=== PATIENT | female | born 1965 | race Caucasian/White ===

== ENCOUNTER 2019-04-19 11:37 | Emergency (ER) | payer OTHER ==
[2019-04-19 11:47] VITALS: BP 134/50; PULSE 90; TEMP 98.9; BMI 26.9
--- NOTE | 2019-04-19 12:10 | PDOC ---
History of Present Illness - General Chief Complaint: Sore Throat Stated Complaint: EARACHE/SORE THROAT Time Seen by Provider: 04/19/19 11:49 History Source: Patient Exam Limitations: No Limitations Past History - Past Medical History Allergies/Adverse Reactions: Allergies Allergy/AdvReac Type Severity Reaction Status Date / Time No Known Allergies Allergy Verified 04/19/19 11:47 Home Medications: Ambulatory Orders No Home Medications 0 dose .ROUTE UTDICT 09/06/13 Cephalexin Monohydrate [Keflex -] 500 mg PO Q8H #21 capsule 10/18/18 Fluticasone Prop 0.05% Nasal [Flonase -] 1 - 2 spray NS DAILY #1 spray.pump 10/31 COPD: No HTN: Yes (NO MEDS) Thyroid Disease: Yes - Immunization History Immunization Up to Date: Yes - Psycho Social/Smoking Cessation Hx Smoking Status: No Smoking History: Never smoked Have you smoked in the past 12 months: No Number of Cigarettes Smoked Daily: 0 Cigars Per Day: 0 Hx Alcohol Use: No Drug/Substance Use Hx: No Substance Use Type: None *Physical Exam - Vital Signs Last Vital Signs Temp Pulse Resp BP Pulse Ox 98.9 F 90 18 134/50 L 98 04/19/19 11:44 04/19/19 11:44 04/19/19 11:44 04/19/19 11:44 04/19/19 11:44 - Physical Exam General Appearance: No: Apparent Distress HEENT: positive: Normal Voice, Nasal Congestion, TM Bulging (L ear), Other (R ear unremarkable). negative: Pharyngeal Erythema, Tonsillar Exudate, Tonsillar Erythema, Rhinorrhea, Sinus Tenderness, TM Erythema Respiratory/Chest: positive: Lungs Clear, Normal Breath Sounds. negative: Respiratory Distress Cardiovascular: positive: Regular Rhythm, Regular Rate, S1, S2. negative: Murmur Integumentary: positive: Normal Color Neurologic: positive: Alert Medical Decision Making - Medical Decision Making 54 y/o F with no sig pmh presents with L ear clogged x 3 days. Also mentions nasal congestion, rhinorrhea, mild throat discomfort. Denies fever, sob, cp, abd pain, n/v, other complaints Likely serous otitis media stable for dc 04/19/19 12:06 Discharge - Discharge Information Problems reviewed: Yes Clinical Impression/Diagnosis: Serous otitis media Qualifiers: Chronicity: acute Laterality: left Recurrence: non-recurrent Qualified Code(s) : H65.02 - Acute serous otitis media, left ear Condition: Stable Disposition: HOME - Admission No - Additional Discharge Information Prescriptions: Fluticasone Prop 0.05% Nasal [Flonase -] 1 - 2 spray NS DAILY #1 spray.pump Prescription Drug Monitoring Program (I-STOP) results: I-STOP not reviewed - Follow up/Referral - Patient Discharge Instructions Patient Printed Discharge Instructions: Middle Ear Infection Additional Instructions: Thank you for choosing [facility]. It was a pleasure taking care of you. Use normal saline spray/Nedi-pot to help with congestion Also use the Flonase spray as directed Follow-up with your doctor in 2-3 days Return to the Emergency Department if your symptoms worsen or persist, you have fever or other concerning symptoms. - Post Discharge Activity
== END 2019-04-19 12:45 | disposition home or self-care (01) ==
LOC: JERFT 11:37
DX: H65.02 Acute serous otitis media, left ear (principal); I10 Essential (primary) hypertension; E07.9 Disorder of thyroid, unspecified
CPT/HCPCS: 99281-25

== ENCOUNTER 2019-06-21 02:41 | Emergency (ER) | payer OTHER ==
--- NOTE | 2019-06-21 03:38 | PDOC ---
History of Present Illness - General Stated Complaint: VOMITING Time Seen by Provider: 06/21/19 03:27 - History of Present Illness Initial Comments: Quinton Rachel is a 54F with no reported pmh presenting today with epigastric and periumbilical abdominal pain and vomiting x2 that started at 6pm yesterday evening. Reports that she ate at home and that a lot of her family has been sick with nausea/vomiting. Reports associated diarrhea. Denies fever/chills. Denies chest pain/shortness of breath. Denies lower extremity swelling. Denies dysuria. Describes the pain as burning in sensation. No pain radiation. SurgHx: no abdominal surgeries Past History - Past Medical History Allergies/Adverse Reactions: Allergies Allergy/AdvReac Type Severity Reaction Status Date / Time No Known Allergies Allergy Verified 04/19/19 11:47 Home Medications: Ambulatory Orders No Home Medications 0 dose .ROUTE UTDICT 09/06/13 Cephalexin Monohydrate [Keflex -] 500 mg PO Q8H #21 capsule 10/18/18 Fluticasone Prop 0.05% Nasal [Flonase -] 1 - 2 spray NS DAILY #1 spray.pump 10/31 Fluticasone Prop 0.05% Nasal [Flonase -] 1 - 2 spray NS DAILY #1 spray.pump 10/31 COPD: No HTN: Yes (NO MEDS) Thyroid Disease: Yes - Immunization History Immunization Up to Date: Yes - Psycho Social/Smoking Cessation Hx Smoking Status: No Smoking History: Never smoked Have you smoked in the past 12 months: No Number of Cigarettes Smoked Daily: 0 Cigars Per Day: 0 Hx Alcohol Use: No Drug/Substance Use Hx: No Substance Use Type: None Review of Systems - Review of Systems Comments:: GENERAL/CONSTITUTIONAL: No fever or chills. No weakness._ HEAD, EYES, EARS, NOSE AND THROAT: No change in vision. No change in hearing. No sore throat._ CARDIOVASCULAR: No chest pain or shortness of breath_ RESPIRATORY: Denies cough, hemoptysis_ GASTROINTESTINAL: Reports abdominal pain, nausea, vomiting, diarrhea. GENITOURINARY: No dysuria, frequency, or change in urination._ MUSCULOSKELETAL: No joint or muscle swelling or pain. No neck or back pain._ SKIN: No rash_ NEUROLOGIC: No headache, vertigo, loss of consciousness, or change in strength/ sensation._ ENDOCRINE: No increased thirst. No abnormal weight change_ HEMATOLOGIC/LYMPHATIC: No anemia, easy bleeding, or history of blood clots._ ALLERGIC/IMMUNOLOGIC: No hives or skin allergy._ *Physical Exam - Physical Exam GENERAL: Awake, alert, and oriented to person/place/time, in no acute distress_ HEAD: No signs of trauma, normoc ephalic, atraumatic _ EYES: PERRLA, EOMI, sclera anicteric, conjunctiva clear_ ENT: Hearing grossly normal, nares patent, oropharynx clear without exudates. No uvular deviation. Moist mucosa_ NECK: Normal ROM, supple, no lymphadenopathy, JVD, or masses_ LUNGS: No distress, speaks in full sentences, clear to auscultation bilaterally _ HEART: Regular rate and rhythm, normal S1 and S2, no murmurs appreciated, peripheral pulses normal and equal bilaterally._ ABDOMEN: Soft, epigastric and periumbilical TTP, normoactive bowel sounds. No guarding, no rebound. No masses_ EXTREMITIES: Normal inspection, Normal range of motion, no edema. No clubbing or cyanosis_ NEUROLOGICAL: Cranial nerves II through XII grossly intact. Normal speech, normal gait, no focal sensorimotor deficits _ SKIN: Warm, Dry, normal turgor, no rashes or lesions noted_ ED Treatment Course - LABORATORY CBC & Chemistry Diagram: 06/21/19 04:31 06/21/19 04:31 Medical Decision Making - Medical Decision Making 06/21/19 03:37 54F no pmh presenting with epigastric/periumbilical burning abdominal pain. -cbc, cmp, lipase -fluids, tylenol, zofran -ekg 06/21/19 04:42 EKG shows NSR, 82 bpm, no ST elevation, QTc 457. 06/21/19 06:17 Labs reviewed. Laboratory Last Values WBC 9.3 K/mm3 (4.0-10.0) 06/21/19 04:31 RBC 5.19 M/mm3 (3.60-5.2) 06/21/19 04:31 Hgb 14.0 GM/dL (10.7-15.3) 06/21/19 04:31 Hct 41.9 % (32.4-45.2) 06/21/19 04:31 MCV 80.7 fl (80-96) 06/21/19 04:31 MCH 27.0 pg (25.7-33.7) 06/21/19 04:31 MCHC 33.5 g/dl (32.0-36.0) 06/21/19 04:31 RDW 13.5 % (11.6-15.6) 06/21/19 04:31 Plt Count 317 K/MM3 (134-434) 06/21/19 04:31 MPV 8.8 fl (7.5-11.1) 06/21/19 04:31 Absolute Neuts (auto) 8.1 K/mm3 (1.5-8.0) H 06/21/19 04:31 Neutrophils % 86.3 % (42.8-82.8) H D 06/21/19 04:31 Lymphocytes % 7.5 % (8-40) L D 06/21/19 04:31 Monocytes % 5.2 % (3.8-10.2) 06/21/19 04:31 Eosinophils % 0.7 % (0-4.5) 06/21/19 04:31 Basophils % 0.3 % (0-2.0) 06/21/19 04:31 Nucleated RBC % 0 % (0-0) 06/21/19 04:31 Sodium 139 mmol/L (136-145) 06/21/19 04:31 Potassium 4.8 mmol/L (3.5-5.1) 06/21/19 04:31 Chloride 104 mmol/L (98-107) 06/21/19 04:31 Carbon Dioxide 31 mmol/L (21-32) 06/21/19 04:31 Anion Gap 5 MMOL/L (8-16) L 06/21/19 04:31 BUN 15.2 mg/dL (7-18) 06/21/19 04:31 Creatinine 0.7 mg/dL (0.55-1.3) 06/21/19 04:31 Est GFR (CKD-EPI)AfAm 113.05 06/21/19 04:31 Est GFR (CKD-EPI)NonAf 97.54 06/21/19 04:31 Random Glucose 119 mg/dL (74-106) H 06/21/19 04:31 Calcium 8.8 mg/dL (8.5-10.1) 06/21/19 04:31 Total Bilirubin 0.5 mg/dL (0.2-1) 06/21/19 04:31 AST 24 U/L (15-37) 06/21/19 04:31 ALT 31 U/L (13-61) 06/21/19 04:31 Alkaline Phosphatase 61 U/L (45-117) 06/21/19 04:31 Creatine Kinase 110 U/L (26-192) 06/21/19 04:31 Troponin I < 0.02 ng/ml (0.00-0.05) 06/21/19 04:31 Total Protein 7.7 g/dl (6.4-8.2) 06/21/19 04:31 Albumin 3.7 g/dl (3.4-5.0) 06/21/19 04:31 Lipase 71 U/L (73-393) L 06/21/19 04:31 Pt reassessed. Reports much improvement. Plan to d/c home. All questions answered. Strict return precautions. Pt verbalized understanding and agreement with plan. Discharge - Discharge Information Problems reviewed: Yes Clinical Impression/Diagnosis: Vomiting Condition: Stable Disposition: HOME - Follow up/Referral Referrals: Mino Davidson MD [Staff Physician] - - Patient Discharge Instructions Patient Printed Discharge Instructions: DI for Vomiting -- Adult Additional Instructions: Please keep yourself hydrated with fluids as much as possible. If you experience any new, worsening, or concerning symptoms, including worsening abdominal pain, unable to keep down fluids, blood in the vomit, or any other concerns, please return to the emergency department. - Post Discharge Activity
[2019-06-21 04:36] VITALS: BP 146/62; PULSE 84; TEMP 99; BMI 27.4
--- NOTE | 2019-06-21 04:52 | PDOC ---
Attending Attestation - Resident Resident Name: Hernandez Stoll - ED Attending Attestation I have performed the following: I have examined & evaluated the patient, The case was reviewed & discussed with the resident, I agree w/resident's findings & plan, Exceptions are as noted - HPI HPI: 06/27/19 20:41 See resident HPI - Physicial Exam PE: 06/27/19 20:41 Agree with documented exam - Medical Decision Making 06/27/19 20:41 54F with abdominal px a/w diarrhea, household members with same symptoms symptomatic tx, f/u labs re-eval symptoms improved dc home
[2019-06-21 05:03] LABS: BASO % 0.3 % (0-2.0); EOS % 0.7 % (0-4.5); HEMATOCRIT 41.9 % (32.4-45.2); LYMPH % 7.5 % (8-40); MCHC 33.5 g/dl (32.0-36.0); MEAN CELL VOLUME 80.7 fl (80-96); MEAN PLT VOLUME 8.8 fl (7.5-11.1); MONO % 5.2 % (3.8-10.2); NEUT % 86.3 % (42.8-82.8); PLATELET COUNT 317 K/MM3 (134-434); RBC 5.19 M/mm3 (3.60-5.2); RDW 13.5 % (11.6-15.6); WHITE BLOOD COUNT 9.3 K/mm3 (4.0-10.0)
[2019-06-21] MEDS ORDERED: SODIUM CHLORIDE 0.9% 500 ML INFUS.BAG IV ONE (05:06)
[2019-06-21] MEDS ORDERED: ACETAMINOPHEN 1000 MG/100 ML VIAL (NON FORMULARY) IVPB ONE (05:06)
[2019-06-21] MEDS ORDERED: ONDANSETRON 4 MG/2 ML VIAL IVPUSH ONE (05:12)
[2019-06-21 05:14] LABS: ALBUMIN 3.7 g/dl (3.4-5.0); BILIRUBIN,TOTAL 0.5 mg/dL (0.2-1); BLOOD UREA NITROGEN 15.2 mg/dL (7-18); CALCIUM 8.8 mg/dL (8.5-10.1); CREATININE 0.7 mg/dL (0.55-1.3); POTASSIUM 4.8 mmol/L (3.5-5.1); TOT PROT 7.7 g/dl (6.4-8.2)
[2019-06-21] MEDS ORDERED: ONDANSETRON 4 MG/2 ML VIAL ONE (05:20)
[2019-06-21] MEDS ORDERED: ACETAMINOPHEN INJECTION 100 ML IVPB ONE (05:20)
[2019-06-21 06:21] LABS: HYALINE CASTS 16 /lpf (0-8); PH,URINE >= 9.0 (5.0-8.0); URINE APPEARANCE CLEAR; URINE BACTERIA 46.6 /hpf (NEGATIVE); URINE BILIRUBIN NEGATIVE (NEGATIVE); URINE COLOR YELLOW; URINE GLUCOSE (UA) NEGATIVE (NEGATIVE); URINE KETONE 1+ (NEGATIVE); URINE LEUK ESTERASE 1+ (NEGATIVE); URINE NITRITE NEGATIVE (NEGATIVE); URINE PROTEIN 1+ (NEGATIVE); URINE RBC 2 /hpf (0-4); URINE UROBILINOGEN 0.2 mg/dL (0.2-1.0); URINE WBC 8 /hpf (0-5)
--- NOTE | 2019-06-21 12:21 | EKG ---
Test Reason : Blood Pressure : / mmHG Vent. Rate : 082 BPM Atrial Rate : 082 BPM P-R Int : 154 ms QRS Dur : 086 ms QT Int : 392 ms P-R-T Axes : 074 079 075 degrees QTc Int : 457 ms NORMAL SINUS RHYTHM WHEN COMPARED WITH ECG OF 07-FEB-2016 01:15, NONSPECIFIC T WAVE ABNORMALITY NOW EVIDENT IN LATERAL LEADS Confirmed by JAGDEEP PAINTING MD ([id number]) on 06/21/2019 12:21:36 PM Referred By: Confirmed By:JAGDEEP PAINTING MD
== END 2019-06-21 06:33 | disposition home or self-care (01) ==
LOC: JER 02:41
PROC: 3E033NZ Introduction of Analgesics, Hypnotics, Sedatives into Peripheral Vein, Percutaneous Approach (ICD-10-PCS; principal; 2019-06-21)
PROC: 3E033GC Introduction of Other Therapeutic Substance into Peripheral Vein, Percutaneous Approach (ICD-10-PCS; 2019-06-21)
DX: R11.10 Vomiting, unspecified (principal)
CPT/HCPCS: 36415; 80053; 81003; 82550; 83690; 84484; 85025; 87086; 93005; 93010; 96374; 96375; 99283-25; J0131

== ENCOUNTER 2020-05-03 11:07 | Emergency (ER) | payer OTHER ==
[2020-05-03 11:37] VITALS: BMI 26.9
[2020-05-03] MEDS ORDERED: SODIUM CHLORIDE 1,000 ML IV STA (12:10)
[2020-05-03] MEDS ORDERED: ACETAMINOPHEN 1000 MG/100 ML VIAL (NON FORMULARY) IVPB ONE (12:18)
[2020-05-03] MEDS ORDERED: ACETAMINOPHEN INJECTION 100 ML IVPB ONE (12:35)
[2020-05-03 12:43] LABS: BASO % 0.2 % (0-2.0); HEMATOCRIT 39.5 % (32.4-45.2); HEMOGLOBIN 12.9 GM/dL (10.7-15.3); LYMPH % 17.9 % (8-40); MCH 26.5 pg (25.7-33.7); MCHC 32.6 g/dl (32.0-36.0); MEAN CELL VOLUME 81.2 fl (80-96); MONO % 7.5 % (3.8-10.2); NEUT % 74.4 % (42.8-82.8); PLATELET COUNT 269 K/MM3 (134-434); RBC 4.87 M/mm3 (3.60-5.2); RDW 13.4 % (11.6-15.6)
[2020-05-03 12:44] LABS: URINE APPEARANCE CLEAR; URINE BILIRUBIN NEGATIVE (NEGATIVE); URINE COLOR YELLOW; URINE GLUCOSE (UA) NEGATIVE (NEGATIVE); URINE KETONE NEGATIVE (NEGATIVE); URINE LEUK ESTERASE NEGATIVE (NEGATIVE); URINE NITRITE NEGATIVE (NEGATIVE); URINE PROTEIN NEGATIVE (NEGATIVE); URINE UROBILINOGEN 0.2 mg/dL (0.2-1.0)
[2020-05-03 13:04] LABS: ALBUMIN 3.4 g/dl (3.4-5.0); BLOOD UREA NITROGEN 6.8 mg/dL (7-18); CALCIUM 8.6 mg/dL (8.5-10.1)
[2020-05-03 13:08] LABS: CREATININE 0.7 mg/dL (0.55-1.3)
[2020-05-03 13:09] LABS: BILIRUBIN,TOTAL 0.2 mg/dL (0.2-1); TOT PROT 7.9 g/dl (6.4-8.2)
[2020-05-03 13:39] VITALS: BP 140/68; PULSE 92; TEMP 98.1
== END 2020-05-03 14:18 | disposition home or self-care (01) ==
LOC: JER 11:07
PROC: 3E0333Z Introduction of Anti-inflammatory into Peripheral Vein, Percutaneous Approach (ICD-10-PCS; principal; 2020-05-03)
PROC: 3E033GC Introduction of Other Therapeutic Substance into Peripheral Vein, Percutaneous Approach (ICD-10-PCS; 2020-05-03)
DX: U07.1 COVID-19 (principal); R50.9 Fever, unspecified; R19.7 Diarrhea, unspecified
CPT/HCPCS: 36415; 71046-TC-FY; 80053; 81003; 85025; 99284-25; C9803; J0131; U0003